=== PATIENT | male | born 2000 | race Caucasian/White ===

== ENCOUNTER 2020-11-03 11:31 | Observation (INO) ==
[2020-11-03 11:51] VITALS: BMI 34.9
[2020-11-03] MEDS ORDERED: TORADOL 30 MG VIAL IVP ONE (12:03)
[2020-11-03] MEDS ORDERED: ZOFRAN INJ 4 MG VIAL IVP ONE (12:03)
--- NOTE | 2020-11-03 12:18 | DR.N/VMALE ---
HPI Time Seen Time Seen by Provider: 11/03/20 12:03 Primary Care Physician Primary Care Physician: LIZBETH SIMMONS GARNETT MECHANIC Complaints Chief Complaint Doctors Comments: c/o worsening abd pain and sent over for likely demario eval per gen surg. Chief Complaint:: PT WAS SEEN IN THE ED ON TUESDAY FOR RUQ PAIN AND N/V, FOLLOWED UP WITH PCP THIS MORNING, SENT HERE BY PCP FOR CONSULT WITH SURGEON FOR HIS GALLBLADDER. PT WAS GIVEN IM INJ FOR NAUSEA AT OFFICE, DOES NOT KNOW MED, BUT STILL HAVING PAIN AND VOMITING. COVID-19 Coronavirus risk:travel/contact w/high risk person: No Has patient experienced Coronavirus symptoms: No Reviewed Nurses Notes Reviewed: Yes Source History Provided: Patient Mode of Arrival Mode of Arrival: Ambulatory Timing Onset of Chief Complaint: 10/30/20 PMH PMH Past Medical History: No Past Surgical History: No Surgical History: Appendectomy and Tonsillectomy Family History History of Family Medical Conditions: No Social History Alcohol Use: Occasionally Do you use any recreational Drugs:: Yes (MARIJUANA) Lives Where: Home Travel Risk Coronavirus risk:travel/contact w/high risk person: No Has patient experienced Coronavirus symptoms: No Infectious screening Have you traveled outside the country in the last 6 months?: No Isolation: Standard ROS Review of Systems Constitutional: See HPI Eyes: No Symptoms Reported ENTM: No Symptoms Reported Respiratoy: No Symptoms Reported Cardiovascular: No Symptoms Reported Gastrointestinal/Abdominal: No Symptoms Reported Genitourinary: No Symptoms Reported Neurological: No Symptoms Reported Musculoskeletal: No Symptoms Reported Integumentary: No Symptoms Reported Hematologic/Lymphatic: No Symptoms Reported All Other Systems: Reviewed and Negative PE Vital Signs Vitals: Temperature 96.5 F Pulse Rate 18 Respiratory Rate 18 Blood Pressure [Left Arm] 121/75 Blood Pressure 136/82 O2 Sat by Pulse Oximetry 97 General General Appearance: Alert and In Distress Head Head Exam: Normal Inspection and Normocephalic Eyes Eye exam: Normal Appearance, PERRL and EOMI ENT ENT Exam: Normal Exam Neck Neck Exam: Normal Inspection and Full ROM Respiratory Respiratory Exam: Normal Lung Sounds Bilat Cardiovascular Cardiovascular Exam: Regular Rate and Normal Heart Sounds Abdominal Exam Abdominal Exam: Normal Inspection, Normal Bowel Sounds, Soft and Tenderness; negative Rebound and Dimnished Bowel Sounds Extremities Extremities Exam: Normal Inspection and Full ROM Back Back Exam: Normal Inspection and Full ROM Neurologic Neurological Exam: Alert and Oriented X3 Skin Skin Exam: Warm, Dry and Intact COURSE Treatment Treatment: required antiemetics, IV pain meds, pepcid. seen by dr ramirez and cont to have sx. ROR Labs Reviewed Laboratory Results Reviewed?: Yes Result Diagrams: 11/03/20 12:07 11/03/20 12:07 Laboratory: WBC 4.7 X10^3/uL (3.6-10.0) 11/03/20 12:07 RBC 5.63 X10^6/uL (4.7-6.0) 11/03/20 12:07 Hgb 17.0 g/dL (13.5-18.0) 11/03/20 12:07 Hct 47.2 % (42.0-54.0) 11/03/20 12:07 MCV 83.8 fL (80.0-100.0) 11/03/20 12:07 MCH 30.1 pg (27.0-34.0) 11/03/20 12:07 MCHC 36.0 g/dL (33.0-35.0) H 11/03/20 12:07 RDW 13.4 % (11.6-16.5) 11/03/20 12:07 Plt Count 223 X10^3/uL (150.0-450.0) 11/03/20 12:07 MPV 9.0 fL (7.4-11.0) 11/03/20 12:07 Neut % (Auto) 64.7 % (42.0-75.0) 11/03/20 12:07 Lymph % (Auto) 26.2 % (21.0-51.0) 11/03/20 12:07 [place] % (Auto) 6.8 % (0.0-13.0) 11/03/20 12:07 Eos % (Auto) 1.1 % (0.9-2.9) 11/03/20 12:07 Baso % (Auto) 1.2 % (0.2-1.0) H 11/03/20 12:07 Neut # (Auto) 3.0 x10^3/uL (2.2-4.8) 11/03/20 12:07 Lymph # (Auto) 1.2 X10^3/uL (1.3-2.9) L 11/03/20 12:07 [place] # (Auto) 0.3 x10^3/uL (0.3-0.8) 11/03/20 12:07 Eos # (Auto) 0.1 x10^3/uL (0.0-0.2) 11/03/20 12:07 Baso # (Auto) 0.1 X10^3/uL (0.0-0.1) 11/03/20 12:07 Absolute Nucleated RBC 0.6 /100WBC 11/03/20 12:07 Sodium 143 mmol/L (136-145) 11/03/20 12:07 Corrected Sodium TNP 11/03/20 12:07 Potassium 3.9 mmol/L (3.5-5.1) 11/03/20 12:07 Chloride 102 mmol/L (98-107) 11/03/20 12:07 Carbon Dioxide 27.5 mmol/L (21-32) 11/03/20 12:07 BUN 12 mg/dL (7-18) 11/03/20 12:07 Creatinine 1.36 mg/dL (0.70-1.30) H 11/03/20 12:07 Est GFR (MDRD) Af Amer > 60 (>60) 11/03/20 12:07 Est GFR (MDRD) Non-Af > 60 (>60) 11/03/20 12:07 Glucose 96 mg/dL (65-99) 11/03/20 12:07 Calcium 9.9 mg/dL (8.5-10.1) 11/03/20 12:07 Corrected Calcium TNP 11/03/20 12:07 Total Bilirubin 1.10 mg/dL (0.2-1.0) H 11/03/20 12:07 AST 25 Units/L (15-37) 11/03/20 12:07 ALT 50 Units/L (12-78) 11/03/20 12:07 Alkaline Phosphatase 111 Units/L (46-116) 11/03/20 12:07 Total Protein 8.1 g/dL (6.4-8.2) 11/03/20 12:07 Albumin 4.8 g/dL (3.4-5.0) 11/03/20 12:07 Globulin 3.3 g/dL (2.5-4.5) 11/03/20 12:07 Albumin/Globulin Ratio 1.5 Ratio (1.1-2.1) 11/03/20 12:07 Amylase 27 Units/L (25-115) 11/03/20 12:07 Lipase 134 Units/L (73-393) 11/03/20 12:07 Opioid Opioid Risk Tool Age (See box if 16-45): Yes Total: 1 Total Score Risk Category: Low Risk Copyright: Tutu ARNOLD predicting aberrant behaviors Diagnosis Discharge Problem: Nausea and vomiting in adult patient
[2020-11-03] MEDS ORDERED: TORADOL 30 MG VIAL ONE (12:20)
[2020-11-03] MEDS ORDERED: ZOFRAN INJ 4 MG VIAL ONE (12:20)
[2020-11-03 12:29] LABS: ALANINE AMINOTRANSFERASE 50 Units/L (12-78); ALBUMIN 4.8 g/dL (3.4-5.0); ALKALINE PHOSPHATASE 111 Units/L (46-116); AMYLASE 27 Units/L (25-115); ASPARTATE AMINO TRANSFERASE 25 Units/L (15-37); BLOOD UREA NITROGEN 12 mg/dL (7-18); CALCIUM 9.9 mg/dL (8.5-10.1); CARBON DIOXIDE 27.5 mmol/L (21-32); CHLORIDE 102 mmol/L (98-107); CREATININE 1.36 mg/dL (0.70-1.30); LIPASE 134 Units/L (73-393); SODIUM 143 mmol/L (136-145); TOTAL PROTEIN 8.1 g/dL (6.4-8.2); eGFR NON BLACK RACES > 60 (>60)
[2020-11-03 12:40] LABS: BASOPHILS # (AUTO) 0.1 X10^3/uL (0.0-0.1); BASOPHILS % (AUTO) 1.2 % (0.2-1.0); EOSINOPHILS # (AUTO) 0.1 x10^3/uL (0.0-0.2); EOSINOPHILS % (AUTO) 1.1 % (0.9-2.9); HEMATOCRIT 47.2 % (42.0-54.0); LYMPHOCYTES # (AUTO) 1.2 X10^3/uL (1.3-2.9); LYMPHOCYTES % (AUTO) 26.2 % (21.0-51.0); MEAN CORPUSCULAR HEMOGLOBIN 30.1 pg (27.0-34.0); MEAN CORPUSCULAR VOLUME 83.8 fL (80.0-100.0); MONOCYTES # (AUTO) 0.3 x10^3/uL (0.3-0.8); MONOCYTES % (AUTO) 6.8 % (0.0-13.0); NEUTROPHILS % (AUTO) 64.7 % (42.0-75.0); PLATELET COUNT 223 X10^3/uL (150.0-450.0); RED BLOOD COUNT 5.63 X10^6/uL (4.7-6.0); RED CELL DISTRIBUTION WIDTH 13.4 % (11.6-16.5); WHITE BLOOD COUNT 4.7 X10^3/uL (3.6-10.0)
--- NOTE | 2020-11-03 13:09 | CT ---
HISTORYRight upper quadrant abdominal pain vomitingSTUDYCT abdomen pelvis without contrastTechnique: Axial noncontrast images with coronal and sagittal reformats. Dose reduction procedures were used with mA/kv adjusted for body size. THIS EXAMINATION IS LIMITED DUE TO THE LACK OF INTRAVENOUS AND ORAL CONTRAST. The examination was performed in this manner at the sole discretion of the ordering caregiver and without input from Radiology.COMPARISONNoneFINDINGSThe lung bases are clear. The liver is normal in size and configuration without focal space-occupying disease to the limitations of an unenhanced examination. No opaque stones are present within the gallbladder. The spleen is enlarged measuring 16.3 cm AP. The adrenal glands and pancreas are normal to the limitations of an unenhanced examination. The kidneys are unobstructed and without stones. No ureteral calculi the patient appears to be status post appendectomy. There are no findings suggestive of enteritis, colitis, or diverticulitis. No pelvic masses, pelvic fluid, or pelvic lymphadenopathy is identified. No bladder abnormality is identified.IMPRESSIONNo definite acute intra-abdominal or intrapelvic abnormality identified to the limitations of an examination performed without intravenous and without oral contrastSplenomegalyElectronically signed by: MARIANNA ZHU (Nov 03, 2020 13:07:50)
[2020-11-03] MEDS ORDERED: REGLAN INJ 10 MG VIAL IVP ONE (13:19)
[2020-11-03] MEDS ORDERED: NS 1000 ML 1,000 ML IV ONE (13:19)
[2020-11-03] MEDS ORDERED: REGLAN INJ 10 MG VIAL ONE (13:21)
[2020-11-03] MEDS ORDERED: NS 1000 ML 1,000 ML ONE (13:21)
[2020-11-03] MEDS ORDERED: PROTONIX INJ 40 MG VIAL ONE (13:33)
[2020-11-03] MEDS ORDERED: LEVSIN/MAALOX/LIDOC VISC PO ONE (13:35)
[2020-11-03] MEDS ORDERED: PEPCID 20 MG IV PREMIX* 20 MG/50 ML BAG IV ONE ×2 (13:35→13:37)
[2020-11-03] MEDS ORDERED: PROTONIX INJ 40 MG VIAL IVP ONE (13:36)
[2020-11-03] MEDS ORDERED: VERSED ONE (15:09)
[2020-11-03] MEDS ORDERED: KETALAR ONE (15:09)
[2020-11-03] MEDS ORDERED: XYLOCAINE 2 % (PLAIN) ONE (15:09)
[2020-11-03] MEDS ORDERED: DIPRIVAN VIAL ONE (15:09)
[2020-11-03] MEDS ORDERED: D5 1/2 NS 1000 ML 1,000 ML IV SCH ×2 (16:00→17:00)
[2020-11-03] MEDS ORDERED: ZOFRAN INJ 4 MG VIAL IVP PRN (16:02)
--- NOTE | 2020-11-03 16:48 | OR.IMMED ---
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
[2020-11-03] MEDS ORDERED: DILAUDID INJ IVP PRN (17:06)
[2020-11-03] MEDS ORDERED: PROTONIX INJ 40 MG VIAL IVP SCH ×2 (21:00)
[2020-11-04] MEDS: D5 1/2 NS 1000 ML 1,000 ML IV SCH ×4 (00:30→17:33)
[2020-11-04] MEDS: PROTONIX INJ 40 MG VIAL IVP SCH ×3 (00:30→20:37)
[2020-11-04] MEDS ORDERED: DONNATAL TAB PO PRN (08:32)
[2020-11-04] MEDS ORDERED: PLAVIX PO SCH (09:00)
[2020-11-04] MEDS ORDERED: LOVENOX INJ 40 MG SYR SC SCH (09:00)
--- NOTE | 2020-11-04 17:07 | DR.PROGNOT ---
Hospital Progress Notes - Progress Note for Day of: Progress Note Date: 11/04/20 - Chief Complaint Chief Complaint: still c/o epigastric and upper abdominal pain . feeling better while NPO . afebrile . - Past Medical Family Social History Past Med/Fam/Surg Hx: No changes since H&P Allergies: Allergies No Known Drug Allergies Allergy (Verified 11/03/20 11:39) - Review Of Systems ROS: No change since H&P - Vital Signs Vital Signs: Temperature 98.6 F Pulse Rate [Left] 70 Pulse Rate 18 Respiratory Rate 20 Blood Pressure [Left Arm] 121/74 Blood Pressure 136/82 O2 Sat by Pulse Oximetry 100 - Physical Exam Oriented: Normal Eyes: Normal Ear: Normal Nose: Normal Throat: Normal Respiratory: Normal Cardiovascular: Normal : Normal GI:Auscultation: Normal GI:Palpation: Normal GI: Tenderness: Epigastric (soft abdomen with RUQ and Rt side tenderness BS+) Skin: Normal Musculoskeletal: Normal Speech Pattern: Clear, Appropriate - Laboratory and Diagnostics Result Diagrams: 11/03/20 12:07 11/03/20 12:07 Labs: Laboratory WBC 4.7 X10^3/uL (3.6-10.0) 11/03/20 12:07 RBC 5.63 X10^6/uL (4.7-6.0) 11/03/20 12:07 Hgb 17.0 g/dL (13.5-18.0) 11/03/20 12:07 Hct 47.2 % (42.0-54.0) 11/03/20 12:07 MCV 83.8 fL (80.0-100.0) 11/03/20 12:07 MCH 30.1 pg (27.0-34.0) 11/03/20 12:07 MCHC 36.0 g/dL (33.0-35.0) H 11/03/20 12:07 RDW 13.4 % (11.6-16.5) 11/03/20 12:07 Plt Count 223 X10^3/uL (150.0-450.0) 11/03/20 12:07 MPV 9.0 fL (7.4-11.0) 11/03/20 12:07 Neut % (Auto) 64.7 % (42.0-75.0) 11/03/20 12:07 Lymph % (Auto) 26.2 % (21.0-51.0) 11/03/20 12:07 [place] % (Auto) 6.8 % (0.0-13.0) 11/03/20 12:07 Eos % (Auto) 1.1 % (0.9-2.9) 11/03/20 12:07 Baso % (Auto) 1.2 % (0.2-1.0) H 11/03/20 12:07 Neut # (Auto) 3.0 x10^3/uL (2.2-4.8) 11/03/20 12:07 Lymph # (Auto) 1.2 X10^3/uL (1.3-2.9) L 11/03/20 12:07 [place] # (Auto) 0.3 x10^3/uL (0.3-0.8) 11/03/20 12:07 Eos # (Auto) 0.1 x10^3/uL (0.0-0.2) 11/03/20 12:07 Baso # (Auto) 0.1 X10^3/uL (0.0-0.1) 11/03/20 12:07 Absolute Nucleated RBC 0.6 /100WBC 11/03/20 12:07 Sodium 143 mmol/L (136-145) 11/03/20 12:07 Corrected Sodium TNP 11/03/20 12:07 Potassium 3.9 mmol/L (3.5-5.1) 11/03/20 12:07 Chloride 102 mmol/L (98-107) 11/03/20 12:07 Carbon Dioxide 27.5 mmol/L (21-32) 11/03/20 12:07 BUN 12 mg/dL (7-18) 11/03/20 12:07 Creatinine 1.36 mg/dL (0.70-1.30) H 11/03/20 12:07 Est GFR (MDRD) Af Amer > 60 (>60) 11/03/20 12:07 Est GFR (MDRD) Non-Af > 60 (>60) 11/03/20 12:07 Glucose 96 mg/dL (65-99) 11/03/20 12:07 Calcium 9.9 mg/dL (8.5-10.1) 11/03/20 12:07 Corrected Calcium TNP 11/03/20 12:07 Total Bilirubin 1.10 mg/dL (0.2-1.0) H 11/03/20 12:07 AST 25 Units/L (15-37) 11/03/20 12:07 ALT 50 Units/L (12-78) 11/03/20 12:07 Alkaline Phosphatase 111 Units/L (46-116) 11/03/20 12:07 Total Protein 8.1 g/dL (6.4-8.2) 11/03/20 12:07 Albumin 4.8 g/dL (3.4-5.0) 11/03/20 12:07 Globulin 3.3 g/dL (2.5-4.5) 11/03/20 12:07 Albumin/Globulin Ratio 1.5 Ratio (1.1-2.1) 11/03/20 12:07 Amylase 27 Units/L (25-115) 11/03/20 12:07 Lipase 134 Units/L (73-393) 11/03/20 12:07 SARS CoV-2 RNA Rapid LAVINIA Negative (NEGATIVE) 11/03/20 14:44 Tissue Pathology To follow 11/03/20 15:24 - Assessment and Plan 1: abdominal pain . esophagitis . R.O cholecystitis . to advance diet and. for Biliary scan in am .. - Problem Patient Problems: Patient Problems Nausea and vomiting in adult patient (Acute) R11.2
[2020-11-05] MEDS: D5 1/2 NS 1000 ML 1,000 ML IV SCH ×2 (01:02→13:00)
[2020-11-05] MEDS: PROTONIX INJ 40 MG VIAL IVP SCH (08:43)
--- NOTE | 2020-11-05 15:37 | NM ---
HISTORYRUQ PAIN, NAUSEA, VOMITINGSTUDYHIDA/HEPATOBILIARY SCAN W/EF, patient was injected with 5.4 millicuries of technetium 99 M labeled Choletec. Imaging is performed of the right upper quadrant. Following visualization of the gallbladder, patient drank 8 ounces of Ensure Plus with calculation of ejection fraction.COMPARISONCT 11/03/2020FINDINGSHomogeneous distribution of radiotracer is seen in the liver. There is prompt excretion into the small bowel. There is slight delayed visualization of the gallbladder which is not seen until 35 minutes. Following oral bolus of Ensure, gallbladder ejection fraction of 0 percent is calculated.IMPRESSIONDelayed visualization of the gallbladder and no gallbladder response to ensure suggest gallbladder hypofunction or chronic cholecystitis changes.Electronically signed by: Angel Mclaughlin (Nov 05, 2020 15:35:27)
[2020-11-05 16:16] VITALS: BP 128/71
== END 2020-11-05 16:35 | disposition home or self-care (01) ==
LOC: ER 11:38 → MED/SURG 11:38 → ER 15:05
PROVIDERS: ADMIT Obstetrics & Gynecology Obstetrics; ATTEND Surgery
DX: R11.2 Nausea with vomiting, unspecified; K22.10 Ulcer of esophagus without bleeding; Z87.11 Personal history of peptic ulcer disease; K29.60 Other gastritis without bleeding; E86.0 Dehydration; R10.11 Right upper quadrant pain; Z20.822 Contact with and (suspected) exposure to COVID-19; K82.8 Other specified diseases of gallbladder